=== PATIENT | female | born 1985 | race American Indian/Alaskan Native ===

== ENCOUNTER 2016-08-25 22:42 | Emergency (ER) | payer SELFPAY ==
--- NOTE | 2016-08-26 02:10 | Emergency Department Report ---
ED Headache HPI - General Chief Complaint: Headache Stated Complaint: HEADACHE, FEVER Time Seen by Provider: 08/26/16 02:03 Source: patient, family Exam Limitations: no limitations - History of Present Illness Initial Comments: Patient here complaining of headache for 3 days. She says she is having some nausea. Pain is sharp and located at the front of her head and it 6-9 out of 10. She is also complaining of generalized body ache and feels that she is getting the flu. She reports that she's having nasal congestion and cough. Denies any fever or chills. No [id number] medication taken. Denies any chest pain or shortness of breath. Denies any head injury, dizziness or blurred vision. Timing/Duration: waxing and waning, other (3 days) Quality: moderate, achy Head Injury Location: frontal Recent Head Trauma: no recent headache/trauma Modifying Factors: improves with: rest Associated Symptoms: nausea/vomiting, nasal congestion, nasal drainage, sinus infection. denies: confusion, fatigue, facial pain, fever/chills, flushing, loss of consciousness, numbness in legs/feet, rash, seizures, stiff neck, vision changes, weakness Allergies/Adverse Reactions: Allergies No Known Allergies Allergy (Verified 08/25/16 23:25) Home Medications: Ambulatory Orders Butalb/Acetamin/Caff 50-325-40 [Fioricet] 1 each PO Q4H PRN #15 tablet 05/25/13 Metoclopramide [Reglan] 10 mg PO Q6H PRN #10 tablet 05/25/13 Fluticasone [Flonase] 1 spray NS QDAY #1 bottle 08/26/16 Ibuprofen [Motrin] 600 mg PO Q8H PRN #15 tablet 08/26/16 Loratadine [Claritin] 10 mg PO DAILY #15 tablet 08/26/16 predniSONE [Deltasone] 50 mg PO QDAY #5 tab 08/26/16 ED Review of Systems ROS: Stated complaint: HEADACHE, FEVER Other details as noted in HPI Comment: All other systems reviewed and negative Constitutional: denies: chills, fever Eyes: denies: eye pain, vision change ENT: congestion. denies: ear pain, throat pain Respiratory: cough. denies: shortness of breath, SOB with exertion, SOB at rest , stridor, wheezing Cardiovascular: denies: chest pain, palpitations, edema, syncope Gastrointestinal: nausea. denies: abdominal pain, vomiting, diarrhea Skin: denies: rash Neurological: headache. denies: weakness, numbness, paresthesias, confusion, abnormal gait, vertigo ED Past Medical Hx - Past Medical History Previous Medical History?: Yes Hx Asthma: Yes Additional medical history: ADHD - Surgical History Past Surgical History?: No - Family History Family history: no significant - Social History Smoking Status: Never Smoker Substance Use Type: None - Medications Home Medications: Home Medications Medication Instructions Recorded Confirmed Last Taken Type Butalb/Acetamin/Caff 50-325-40 1 each PO Q4H PRN #15 tablet 05/25/13 Unknown Rx [Fioricet] Metoclopramide [Reglan] 10 mg PO Q6H PRN #10 tablet 05/25/13 Unknown Rx Fluticasone [Flonase] 1 spray NS QDAY #1 bottle 08/26/16 Unknown Rx Ibuprofen [Motrin] 600 mg PO Q8H PRN #15 tablet 08/26/16 Unknown Rx Loratadine [Claritin] 10 mg PO DAILY #15 tablet 08/26/16 Unknown Rx predniSONE [Deltasone] 50 mg PO QDAY #5 tab 08/26/16 Unknown Rx ED Physical Exam - General Limitations: No Limitations General appearance: alert, in no apparent distress - Head Head exam: Present: atraumatic, normocephalic, normal inspection - Eye Eye exam: Present: normal appearance, PERRL, EOMI. Absent: periorbital swelling , periorbital tenderness Pupils: Present: normal accommodation - ENT ENT exam: Present: normal exam, normal orophraynx, mucous membranes moist, normal external ear exam, other (bilateral nasal mucosa congested with erythema. Maxillary and frontal sinus non-tenderness to palpate). Absent: TM' s normal bilaterally (bilateral TMs congested without erythema) - Neck Neck exam: Present: normal inspection, full ROM. Absent: tenderness, meningismus, lymphadenopathy - Respiratory Respiratory exam: Present: normal lung sounds bilaterally. Absent: respiratory distress, chest wall tenderness - Cardiovascular Cardiovascular Exam: Present: regular rate, normal rhythm, normal heart sounds - GI/Abdominal GI/Abdominal exam: Present: soft, normal bowel sounds. Absent: distended, tenderness, guarding, rebound, rigid - Extremities Exam Extremities exam: Present: normal inspection, full ROM, normal capillary refill. Absent: tenderness, pedal edema, joint swelling, calf tenderness - Back Exam Back exam: Present: normal inspection, full ROM. Absent: tenderness, CVA tenderness (R), CVA tenderness (L), muscle spasm, paraspinal tenderness, vertebral tenderness, rash noted - Neurological Exam Neurological exam: Present: alert, oriented X3, normal gait, reflexes normal. Absent: motor sensory deficit - Psychiatric Psychiatric exam: Present: normal affect, normal mood - Skin Skin exam: Present: warm, dry, intact, normal color. Absent: rash ED Course Vital Signs 08/25/16 08/26/16 23:20 02:09 Temperature 98.2 F 98.0 F Pulse Rate 81 91 H Respiratory 18 18 Rate Blood Pressure 118/78 Blood Pressure 129/93 [Right] O2 Sat by Pulse 100 99 Oximetry - Reevaluation(s) Reevaluation #1: 08/26/16 03:01 She given Motrin 800 mg in emergency room to manage headache. ED Medical Decision Making - Medical Decision Making ED course: I discussed the patient based on my physical findings she has a sinus headache and sinus inflammation. I discussed with her that she's been having symptoms for 3 days and has not tried anything [id number] so I was put on Motrin, Flonase and prednisone. Patient voiced understanding of discharge instruction and discharged home with prescription for prednisone, Motrin and amoxicillin. She was given Motrin 800 mg by mouth and emergency room for headache. Critical care attestation.: If time is entered above; I have spent that time in minutes in the direct care of this critically ill patient, excluding procedure time. ED Disposition Clinical Impression: Sinus headache Acute inflammation of sinus Qualifiers: Sinusitis location: unspecified location Recurrence: not specified as recurrent Qualified Code(s): J01.90 - Acute sinusitis, unspecified Disposition: DISCHARGED TO HOME OR SELFCARE Is pt being admited?: No Does the pt Need Aspirin: No Condition: Stable Instructions: Sinusitis (ED), Acute Headache (ED) Additional Instructions: Take medication as prescribed. Prescriptions: Loratadine [Claritin] 10 mg PO DAILY #15 tablet predniSONE [Deltasone] 50 mg PO QDAY #5 tab Fluticasone [Flonase] 1 spray NS QDAY #1 bottle Ibuprofen [Motrin] 600 mg PO Q8H PRN #15 tablet PRN Reason: Pain Referrals: [facility] [Outside] - 2-3 Days PRIMARY CARE, [Primary Care Provider] - 2-3 Days Forms: Work/School Release Form(ED)
[2016-08-26 02:12] VITALS: BP 129/93
[2016-08-26] MEDS ORDERED: MOTRIN ONE (02:33)
[2016-08-26] MEDS ORDERED: MOTRIN PO ONE (02:34)
== END 2016-08-26 03:06 | disposition home or self-care (01) ==
LOC: ED 22:42
DX: J01.90 Acute sinusitis, unspecified (principal); R51 Headache; J45.909 Unspecified asthma, uncomplicated; F90.9 Attention-deficit hyperactivity disorder, unspecified type
CPT/HCPCS: 99282